=== PATIENT | male | born 1945 | race Caucasian/White ===

== ENCOUNTER 2017-06-04 10:58 | Emergency (ER) | payer BC ==
[2017-06-04] MEDS ORDERED: NS 0.9% 1000 ML* 1,000 ML IV ONE (11:29)
[2017-06-04 11:54] LABS: ABS Basophils 0 10^3/ul (0-0.2); ABS Eosinophils 0 10^3/ul (0-0.6); ABS Lymphocytes 0.7 10^3/ul (1.0-4.8); ABS Monocytes 1.1 10^3/ul (0-0.8); ABS Neutrophils 5.7 10^3/ul (1.5-7.7); ABS Nucleated RBC 0 10^3/ul; Eosinophil % 0.3 % (0-6); Hematocrit 44 % (42-52); Hemoglobin 14.8 g/dl (14.0-18.0); Lymphocyte % 8.7 % (25-47); Mean Corpuscular HGB Conc 34 g/dl (31-36); Mean Corpuscular Hemoglobin 31 pg (27-31); Mean Corpuscular Volume 91 fL (80-94); Mean Platelet Volume 8 um3 (7.4-10.4); Nucleated Red Blood Cells % 0; Platelet Count 210 10^3/ul (150-450); Red Blood Count 4.82 10^6/ul (4.0-5.4); Red Cell Distribution Width 15 % (10.5-15); White Blood Count 7.6 10^3/ul (3.5-10.8)
[2017-06-04 12:12] LABS: EGFR Non-African American 78.4 (>60)
--- NOTE | 2017-06-04 12:34 | RAD ---
HISTORY: Fever, cough COMPARISONS: None VIEWS: 4: Frontal dual-energy and lateral views of the chest. FINDINGS: CARDIOMEDIASTINAL SILHOUETTE: The cardiomediastinal silhouette is normal. MARISSA: The marissa are normal. PLEURA: The costophrenic angles are sharp. No pleural abnormalities are noted. LUNG PARENCHYMA: The lungs are clear. ABDOMEN: The upper abdomen is clear. There is no subphrenic gas. BONES AND SOFT TISSUES: No bone or soft tissue abnormalities are noted. OTHER: None. IMPRESSION: NO ACTIVE CARDIOPULMONARY DISEASE.
[2017-06-04 12:58] LABS: Urine Appearance Clear; Urine Blood Negative (Negative); Urine Color Yellow; Urine Ketones Negative (Negative); Urine Protein Negative (Negative); Urine Specific Gravity 1.016 (1.010-1.030); Urine Urobilinogen Negative (Negative)
[2017-06-04 13:56] VITALS: BP 120/72
--- NOTE | 2017-06-04 18:06 | ED ---
Adilene Lewis Edward, scribed for Kris Martinez MD on 06/04/17 at 1143 . Complex/Multi-Sys Presentation - HPI Summary HPI Summary: 71 y/o male presents to the ED c/o sore throat and cough lasting one week. Pt developed a fever two days ago (101 last night). Last night the pt's cough became worse and bothered him throughout the night. The cough is mildly productive, described as a "rolling cough". Associated sx: nasal congestion. Pt had a kidney transplant in July of 2016 in [place]. pt has had tylenol for his fever. - History Of Current Complaint Chief Complaint: EDGeneral Time Seen by Provider: 06/04/17 11:24 Hx Obtained From: Patient Onset/Duration: Lasting Days, Still Present Timing: Constant Associated Signs And Symptoms: Positive: Cough, Fever, Other - sore throat, rhinorrhea, nasal congestion - Allergies/Home Medications Allergies/Adverse Reactions: Allergies Allergy/AdvReac Type Severity Reaction Status Date / Time No Known Allergies Allergy Verified 06/04/17 11:15 PMH/Surg Hx/FS Hx/Imm Hx Previously Healthy: No Cardiovascular History: Reports: Hx Hypertension History: Reports: Other Problems/Disorders - polycystic kidney disease - Surgical History Surgery Procedure, Year, and Place: Kidney transplant July 2016 [place] Infectious Disease History: No Infectious Disease History: Denies: Traveled Outside the [place] in Last 30 Days - Family History Known Family History: Positive: Unknown - Social History Occupation: Employed Full-time Lives: With Family Review of Systems Positive: Fever Eyes: Negative Positive: Sore Throat, Nasal Discharge - rhinorrhea and congestion Cardiovascular: Negative Positive: Cough Gastrointestinal: Negative Genitourinary: Negative Musculoskeletal: Negative Skin: Negative Neurological: Negative Psychological: Normal All Other Systems Reviewed And Are Negative: Yes Physical Exam - Summary Physical Exam Summary: VITAL SIGNS: Reviewed. GENERAL: Patient is an elderly male who is lying comfortable in the stretcher. Patient is not in any acute respiratory distress. HEAD AND FACE: No signs of trauma. No ecchymosis, hematomas or skull depressions. No sinus tenderness. EYES: PERRLA, EOMI x 2, No injected conjunctiva, no nystagmus. EARS: Hearing grossly intact. Ear canals and tympanic membranes are within normal limits. MOUTH: Oropharynx within normal limits. NECK: Supple, trachea is midline, no adenopathy, no JVD, no carotid bruit, no c- spine tenderness, neck with full ROM. CHEST: Symmetric, no tenderness at palpation LUNGS: Clear to auscultation bilaterally. No wheezing or crackles. CVS: Regular rate and rhythm, S1 and S2 present, no murmurs or gallops appreciated. ABDOMEN: Soft, non-tender. No signs of distention. No rebound no guarding, and no masses palpated. Bowel sounds are normal. EXTREMITIES: FROM in all major joints, no edema, no cyanosis or clubbing. NEURO: Alert and oriented x 3. No acute neurological deficits. Speech is normal and follows commands. SKIN: Dry and warm Triage Information Reviewed: Yes Vital Signs On Initial Exam: Initial Vitals Temp Pulse Resp BP Pulse Ox 98.7 F 104 16 136/84 97 06/04/17 11:13 06/04/17 11:13 06/04/17 11:13 06/04/17 11:13 06/04/17 11:13 Vital Signs Reviewed: Yes Diagnostics - Vital Signs Vital Signs Temp Pulse Resp BP Pulse Ox 06/04/17 11:13 98.7 F 104 16 136/84 97 - Laboratory Lab Results: Lab Results 06/04/17 06/04/17 06/04/17 Range/Units 11:40 11:40 11:40 WBC 7.6 (3.5-10.8) 10^3/ul RBC 4.82 (4.0-5.4) 10^6/ul Hgb 14.8 (14.0-18.0) g/dl Hct 44 (42-52) % MCV 91 (80-94) fL MCH 31 (27-31) pg MCHC 34 (31-36) g/dl RDW 15 (10.5-15) % Plt Count 210 (150-450) 10^3/ul MPV 8 (7.4-10.4) um3 Neut % (Auto) 75.8 (38-83) % Lymph % (Auto) 8.7 L (25-47) % [place] % (Auto) 14.7 H (1-9) % Eos % (Auto) 0.3 (0-6) % Baso % (Auto) 0.5 (0-2) % Absolute Neuts (auto) 5.7 (1.5-7.7) 10^3/ul Absolute Lymphs (auto) 0.7 L (1.0-4.8) 10^3/ul Absolute Monos (auto) 1.1 H (0-0.8) 10^3/ul Absolute Eos (auto) 0 (0-0.6) 10^3/ul Absolute Basos (auto) 0 (0-0.2) 10^3/ul Absolute Nucleated RBC 0 10^3/ul Nucleated RBC % 0 Sodium 133 (133-145) mmol/L Potassium 3.8 (3.5-5.0) mmol/L Chloride 101 (101-111) mmol/L Carbon Dioxide 24 (22-32) mmol/L Anion Gap 8 (2-11) mmol/L BUN 10 (6-24) mg/dL Creatinine 0.95 (0.67-1.17) mg/dL Est GFR ( Amer) 100.8 (>60) Est GFR (Non-Af Amer) 78.4 (>60) BUN/Creatinine Ratio 10.5 (8-20) Glucose 162 H (70-100) mg/dL Lactic Acid (0.5-2.0) mmol/L Calcium 9.0 (8.6-10.3) mg/dL Total Bilirubin 0.80 (0.2-1.0) mg/dL AST 14 (13-39) U/L ALT 10 (7-52) U/L Alkaline Phosphatase 37 (34-104) U/L Total Creatine Kinase 69 (10-223) U/L CK-MB (CK-2) 0.6 (0.6-6.3) ng/mL Troponin I 0.01 (<0.04) ng/mL C-Reactive Protein 77.82 H (< 5.00) mg/L B-Natriuretic Peptide 32 ( - 100) pg/mL Total Protein 6.4 (6.4-8.9) g/dL Albumin 3.7 (3.2-5.2) g/dL Globulin 2.7 (2-4) g/dL Albumin/Globulin Ratio 1.4 (1-3) Urine Color Urine Appearance Urine pH (5-9) Ur Specific [place] (1.010-1.030) Urine Protein (Negative) Urine Ketones (Negative) Urine Blood (Negative) Urine Nitrate (Negative) Urine Bilirubin (Negative) Urine Urobilinogen (Negative) Ur Leukocyte Esterase (Negative) Urine Glucose (Negative) Influenza A (Rapid) (Negative) Influenza B (Rapid) (Negative) 06/04/17 06/04/17 06/04/17 Range/Units 11:40 11:53 12:43 WBC (3.5-10.8) 10^3/ul RBC (4.0-5.4) 10^6/ul Hgb (14.0-18.0) g/dl Hct (42-52) % MCV (80-94) fL MCH (27-31) pg MCHC (31-36) g/dl RDW (10.5-15) % Plt Count (150-450) 10^3/ul MPV (7.4-10.4) um3 Neut % (Auto) (38-83) % Lymph % (Auto) (25-47) % [place] % (Auto) (1-9) % Eos % (Auto) (0-6) % Baso % (Auto) (0-2) % Absolute Neuts (auto) (1.5-7.7) 10^3/ul Absolute Lymphs (auto) (1.0-4.8) 10^3/ul Absolute Monos (auto) (0-0.8) 10^3/ul Absolute Eos (auto) (0-0.6) 10^3/ul Absolute Basos (auto) (0-0.2) 10^3/ul Absolute Nucleated RBC 10^3/ul Nucleated RBC % Sodium (133-145) mmol/L Potassium (3.5-5.0) mmol/L Chloride (101-111) mmol/L Carbon Dioxide (22-32) mmol/L Anion Gap (2-11) mmol/L BUN (6-24) mg/dL Creatinine (0.67-1.17) mg/dL Est GFR ( Amer) (>60) Est GFR (Non-Af Amer) (>60) BUN/Creatinine Ratio (8-20) Glucose (70-100) mg/dL Lactic Acid 1.2 (0.5-2.0) mmol/L Calcium (8.6-10.3) mg/dL Total Bilirubin (0.2-1.0) mg/dL AST (13-39) U/L ALT (7-52) U/L Alkaline Phosphatase (34-104) U/L Total Creatine Kinase (10-223) U/L CK-MB (CK-2) (0.6-6.3) ng/mL Troponin I (<0.04) ng/mL C-Reactive Protein (< 5.00) mg/L B-Natriuretic Peptide ( - 100) pg/mL Total Protein (6.4-8.9) g/dL Albumin (3.2-5.2) g/dL Globulin (2-4) g/dL Albumin/Globulin Ratio (1-3) Urine Color Yellow Urine Appearance Clear Urine pH 6.0 (5-9) Ur Specific [place] 1.016 (1.010-1.030) Urine Protein Negative (Negative) Urine Ketones Negative (Negative) Urine Blood Negative (Negative) Urine Nitrate Negative (Negative) Urine Bilirubin Negative (Negative) Urine Urobilinogen Negative (Negative) Ur Leukocyte Esterase Negative (Negative) Urine Glucose Negative (Negative) Influenza A (Rapid) Negative (Negative) Influenza B (Rapid) Negative (Negative) Result Diagrams: 06/04/17 11:40 06/04/17 11:40 Lab Statement: Any lab studies that have been ordered have been reviewed, and results considered in the medical decision making process. - Radiology CXR Xray Interpretation: No Acute Changes - NO ACTIVE CARDIOPULMONARY DISEASE Radiology Interpretation Completed By: Radiologist - EKG 1 EKG Interpretation: 11:45 - SR @ 89 BPM. RBBB. Some PVCs. Re-Evaluation - Re-Evaluation 1 Re-Evaluation Time: 13:50 Comment: Discuss test results and plan of care Complex Multi-Symp Course/Dx Assessment/Plan: 71 y/o male presents to the ED c/o sore throat and cough lasting one week. Pt developed a fever two days ago (101 last night). Last night the pt's cough became worse and bothered him throughout the night. The cough is mildly productive, described as a "rolling cough". Associated sx: nasal congestion. Pt had a kidney transplant in July of 2016 in [place]. pt has had tylenol for his fever. EKG @ 11:45 - SR @ 89 BPM. RBBB. Some PVCs. CXR SHOWS NO ACTIVE CARDIOPULMONARY DISEASE. Test results are without significant abnormalities except CRP 77.8, glucose 162, UA (-) UTI. Influenza A and B negative. CXR negative for PNA. Pt is hydrated in the ED. I discussed with Dr. Faye who recommends the pt be d/c home with a Rx for Tamiflu even though the pt tested negative for flu. However b/c of the pts immunosuppression, Dr. faye wants to give the Tamiflu prophylaxis. Pt is hemodynamically stable, A& Ox3. - Diagnoses Differential Diagnoses/HQI/PQRI: Other - Flue, Pneumonia, Bronchitis, UTI. Provider Diagnoses: URI (upper respiratory infection), Cough - Physician Notifications Discussed Care Of Patient With: Christi Faye Time Discussed With Above Provider: 13:45 Instructed by Provider To: Other - Tamiflu Discharge - Discharge Plan Condition: Stable Disposition: HOME Prescriptions: Oseltamivir CAP* [Tamiflu CAP*] 75 mg PO BID #10 cap Patient Education Materials: Upper Respiratory Infection (ED) Referrals: Christi Faye MD [Primary Care Provider] - 2 Days (PLEASE F/U ON TUESDAY) The documentation as recorded by the Adilene quiñonez Edward accurately reflects the service I personally performed and the decisions made by , Kris Martinez MD.
--- NOTE | 2017-06-06 10:29 | ED ---
Progress - Progress Note Progress Note: Patient's preliminary sputum culture revealed Streptococcus pneumoniae 3+. It appears he was diagnosed with influenza and treated with Tamiflu at discharge. Vitals were stable at time of discharge. Will await final culture and contact patient to update symptoms at that time. Re-Evaluation - Re-Evaluation 1 Re-Evaluation Time: 13:50 Comment: Discuss test results and plan of care Course/Dx - Diagnoses Provider Diagnoses: URI (upper respiratory infection), Cough - Provider Notifications Time Discussed With Above Provider: 13:45 Instructed by Provider To: Other - Tamiflu
== END 2017-06-04 14:04 | disposition home or self-care (01) ==
LOC: ED 10:58
DX: J06.9 Acute upper respiratory infection, unspecified (principal); R05 Cough; R50.9 Fever, unspecified; J02.9 Acute pharyngitis, unspecified; Z86.79 Personal history of other diseases of the circulatory system
CPT/HCPCS: 36415; 71046; 80053; 81003; 82550; 82553; 83605; 83880; 84484; 85025; 86140; 87040; 87070; 87205; 87502; 93005; 96360; 99283

== ENCOUNTER 2018-10-31 12:29 | Day surgery (SDC) | payer BC ==
[~2018-10-31 12:29] MED LIST: Acetaminophen TAB* 325 MG PO PRN; Buffered Lidocaine 1% SYRIN* 1 ML/SYRINGE INTRADERM ONE
[2018-10-31] MEDS ORDERED: fentaNYL* 50 MCG/ML 2 ML VIAL (100 MCG VIAL) ONE (13:20)
[2018-10-31] MEDS ORDERED: Midazolam* 1 MG/ML 2 ML VIAL (2 MG) ONE (13:20)
[2018-10-31] MEDS ORDERED: Phenylephrine OPHTH SOL 2.5%* 2 ML ONE (14:41)
[2018-10-31] MEDS ORDERED: Lidocaine 1%** 5 ML VIAL ONE (14:41)
[2018-10-31] MEDS ORDERED: Ketorolac 0.5% OPHTH (NF) 0.5 % 5 ML BTL ONE (14:41)
[2018-10-31] MEDS ORDERED: Tetracaine 0.5% OPTH.SOL 4 ML* 1 DROP BTL ONE (14:41)
[2018-10-31] MEDS ORDERED: Neomycin/Polymy/Dex OPHTH.OIN* 3.5 GM ONE (14:41)
[2018-10-31] MEDS ORDERED: Tropicamide 1% OPTH.SOL* BTL ONE (14:41)
[2018-10-31] MEDS ORDERED: Cyclopentolate 1% OPTH.SOL* 2 ML BTL ONE (14:41)
--- NOTE | 2018-10-31 15:07 | OP ---
DATE OF OPERATION: 10/31/18 [facility] DATE OF : 47 SURGEON: Dr. Curt Gamboa. FAMILY LAW SPECIALIST: None. ANESTHESIA: Topical with intravenous sedation. PRE-OP DIAGNOSIS: Cataract, left eye. POST-OP DIAGNOSIS: Cataract, left eye. OPERATIVE PROCEDURE: Phacoemulsification and cataract extraction with posterior chamber intraocular lens implant, left eye. COMPLICATIONS: None. BLOOD LOSS: None. OPERATIVE REPORT: DESCRIPTION OF PROCEDURE: The patient was brought to the operating room and received a small amount of intravenous sedation. A drop of Tetracaine was placed in his left eye. He was prepped and draped in the usual sterile fashion for ophthalmic surgery and attention was directed to the left eye where a speculum was placed. A paracentesis was created at the 5 o'clock position and 0.1 cc of 1 percent preservative-free Lidocaine was injected into the anterior chamber followed by DisCoVisc. The eye was digitally stabilized while a 2.75 mm keratome was used to create a triplanar clear corneal incision at the 3 o' clock position. A continuous curvilinear capsulorrhexis was created with a cystotome and Utrata forceps. BSS on a cannula was used to hydrodissect the lens from the capsule. Phacoemulsification was performed in a divide-and- conquer technique to create four fragments which were removed. Residual cortical material was removed with irrigation and aspiration. DisCoVisc was used to inflate the capsular bag and an AU00T0 16.0 diopter lens was folded and inserted into the capsular bag. DisCoVisc was removed using irrigation and aspiration. BSS on a cannula was used to hydrate the corneal stroma and seal the wound. At the end of the case the pupil was round and the lens was centered. The eye was of normal pressure and the wound was water tight. The speculum was removed and topical Maxitrol ointment was placed on the surface of the eye. The eye was closed, patched and shielded and the patient was sent to the recovery room in stable condition with post operative instructions and followup appointment given. [id number]/CPS #: [id number] ROSALINO
[2018-10-31 15:27] VITALS: BP 111/63
== END 2018-10-31 14:40 | disposition home or self-care (01) ==
LOC: OREAST 12:29
PROVIDERS: ATTEND Ophthalmology
DX: H25.042 Posterior subcapsular polar age-related cataract, left eye (principal); Z85.828 Personal history of other malignant neoplasm of skin; Z94.0 Kidney transplant status; Z87.891 Personal history of nicotine dependence
CPT/HCPCS: A9270-GY; J2250; J3010; V2632

== ENCOUNTER 2018-11-07 11:08 | Day surgery (SDC) | payer BC ==
[2018-11-07] MEDS ORDERED: Midazolam* 1 MG/ML 5 ML VIAL (5 MG) ONE (11:34)
[2018-11-07] MEDS ORDERED: fentaNYL* 50 MCG/ML 2 ML VIAL (100 MCG VIAL) ONE (11:34)
--- NOTE | 2018-11-07 12:54 | OP ---
DATE OF OPERATION: 11/07/18 [facility] DATE OF : 47 SURGEON: Dr. Curt Gamboa. AIR MOVING TECHNICIAN: None. ANESTHESIA: Topical with intravenous sedation. PRE-OP DIAGNOSIS: Cataract, right eye. POST-OP DIAGNOSIS: Cataract, right eye. OPERATIVE PROCEDURE: Phacoemulsification and cataract extraction with posterior chamber intraocular lens implant, right eye. COMPLICATIONS: None. BLOOD LOSS: None. DESCRIPTION OF PROCEDURE: The patient was brought to the operating room and received a small amount of intravenous sedation. A drop of Tetracaine was placed in his right eye. He was prepped and draped in the usual sterile fashion for ophthalmic surgery and attention was directed to the right eye where a speculum was placed. A paracentesis was created at the 11 o'clock position and 0.1 cc of 1 percent preservative-free Lidocaine was injected into the anterior chamber followed by DisCoVisc. The eye was digitally stabilized while a 2.75 mm keratome was used to create a triplanar clear corneal incision at the 9 o'clock position. A continuous curvilinear capsulorrhexis was created with a cystotome and Utrata forceps. BSS on a cannula was used to hydrodissect the lens from the capsule. Phacoemulsification was performed in a divide-and- conquer technique to create four fragments which were removed. Residual cortical material was removed with irrigation and aspiration. DisCoVisc was used to inflate the capsular bag and an AU00T0 16.0 diopter lens was folded and inserted into the capsular bag. DisCoVisc was removed using irrigation and aspiration. BSS on a cannula was used to hydrate the corneal stroma and seal the wound. At the end of the case the pupil was round and the lens was centered. The eye was of normal pressure and the wound was water tight. The speculum was removed and topical Maxitrol ointment was placed on the surface of the eye. The eye was closed, patched and shielded and the patient was sent to the recovery room in stable condition with post operative instructions and follow-up appointment given. [id number]/CPS #: [id number] ROSALINO
[2018-11-07 12:58] VITALS: BP 113/75
[2018-11-07] MEDS ORDERED: Tropicamide 1% OPTH.SOL* BTL ONE (13:12)
[2018-11-07] MEDS ORDERED: Cyclopentolate 1% OPTH.SOL* 2 ML BTL ONE (13:12)
[2018-11-07] MEDS ORDERED: Neomycin/Polymy/Dex OPHTH.OIN* 3.5 GM ONE (13:12)
[2018-11-07] MEDS ORDERED: Lidocaine 1% MPF ** 5 ML VIAL ONE (13:12)
[2018-11-07] MEDS ORDERED: Tetracaine 0.5% OPTH.SOL 4 ML* 1 DROP BTL ONE (13:12)
[2018-11-07] MEDS ORDERED: Ketorolac 0.5% OPHTH (NF) 0.5 % 5 ML BTL ONE (13:12)
[2018-11-07] MEDS ORDERED: Phenylephrine OPHTH SOL 2.5%* 2 ML ONE (13:12)
== END 2018-11-07 12:49 | disposition home or self-care (01) ==
LOC: OREAST 11:08
PROVIDERS: ATTEND Ophthalmology
DX: H25.11 Age-related nuclear cataract, right eye (principal); Z94.0 Kidney transplant status; Z85.828 Personal history of other malignant neoplasm of skin; Z87.891 Personal history of nicotine dependence
CPT/HCPCS: A9270-GY; J2250; J3010; V2632

== ENCOUNTER 2019-04-27 18:14 | Emergency (ER) | payer BC ==
--- NOTE | 2019-04-27 19:13 | ED ---
Abdominal Pain/Male - HPI Summary HPI Summary: 73-year-old male with a significant past medical history of polycystic kidney disease with kidney transplant in 2017 at [facility] in [facility], presents to the emergency department today complaining of abdominal pain. Patient endorses having diffuse lower abdominal pain for the past 2 weeks which is about a 3 out of 10 and last evening experiencing 8 out of 10 left lower quadrant abdominal pain which is made worse with palpation. Patient is taking antirejection medications such as immunosuppressants and prednisone daily. Patient denies blood per rectum, fevers , chills, dark colored stools, changes in bowel habits, changes in medications, shortness breath, chest pain, rash. - History of Current Complaint Chief Complaint: EDAbdPain Stated Complaint: ABD PAIN PER PT Time Seen by Provider: 04/27/19 18:49 Hx Obtained From: Patient Onset/Duration: Sudden Onset, Gradual Onset Timing: Constant, Intermittent Severity Initially: Mild Severity Currently: Severe Pain Intensity: 6 Pain Scale Used: 0-10 Numeric Location: Discrete At: LLQ Radiates: No Character: Sharp Aggravating Factor(s): Movement Alleviating Factor(s): Position Associated Signs And Symptoms: Negative: Fever, Cough, Chest Pain, Dizzy, Back Pain, Blood in Stool, Urinary Symptoms, Decreased Appetite, Nausea, Vomiting, Diarrhea - Allergies/Home Medications Allergies/Adverse Reactions: Allergies Allergy/AdvReac Type Severity Reaction Status Date / Time No Known Allergies Allergy Verified 04/27/19 18:18 Home Medications: Home Medications Aspirin EC TAB* [Ecotrin EC Low Dose 81 MG*] 81 mg PO DAILY 04/27/19 [History Confirmed 04/27/19] Cholecalciferol TAB* [Vitamin D TAB*] 1,000 unit PO DAILY 04/27/19 [History Confirmed 04/27/19] Dutasteride (NF) [Avodart (NF)] 0.5 mg PO QAM 04/27/19 [History Confirmed ] Mycophenolate Mofetil CAP(*) [Cellcept CAP(*)] 1,000 mg PO BID 04/27/19 [ History Confirmed 04/27/19] Tacrolimus CAP(*) [Prograf CAP(*)] 0.5 mg PO QPM 04/27/19 [History Confirmed ] Tacrolimus CAP(*) [Prograf CAP(*)] 1 mg PO QAM 04/27/19 [History Confirmed 04/27] Vitamin B Complex CAP* [B Complex CAP*] 1 cap PO DAILY 04/27/19 [History Confirmed 04/27/19] predniSONE TAB* [Deltasone TAB*] 5 mg PO DAILY 04/27/19 [History Confirmed 04/27] PMH/Surg Hx/FS Hx/Imm Hx Cardiovascular History: Reports: Hx Hypertension Denies: Other Cardiovascular Problems/Disorders History: Reports: Hx Kidney Infection - down to 10 percent prior to transplant, Hx Kidney Stones - hx of, Other Problems/Disorders - polycystic kidney disease Musculoskeletal History: Denies: Hx Osteoporosis Sensory History: Reports: Hx Cataracts - alicia, Hx Contacts or Glasses - glasses Denies: Hx Hearing Aid Opthamlomology History: Reports: Hx Cataracts - alicia, Hx Contacts or Glasses - glasses - Surgical History Surgery Procedure, Year, and Place: kidney transplant 2017 Hx Anesthesia Reactions: No Infectious Disease History: No Infectious Disease History: Denies: Traveled Outside the [place] in Last 30 Days - Family History Known Family History: Positive: Unknown - Social History Alcohol Use: None Alcohol Amount: 1 per day Substance Use Type: Reports: None Smoking Status (MU): Former Smoker Amount Used/How Often: in college for 5 yrs pack a day Review of Systems Constitutional: Negative Eyes: Negative ENT: Negative Cardiovascular: Negative Respiratory: Negative Positive: Abdominal Pain. Negative: Vomiting, Diarrhea, Nausea Genitourinary: Negative Musculoskeletal: Negative Skin: Negative Neurological: Negative Psychological: Normal All Other Systems Reviewed And Are Negative: Yes Physical Exam - Summary Physical Exam Summary: Inspection of the abdomen reveals no ecchymosis or masses. Auscultation reveals normoactive bowel sounds. Palpation reveals tenderness of the left lower quadrant. Negative psoas, Rovsing, obturator, McBurney's, Toussaint's sign. No renal masses appreciated with exam. Triage Information Reviewed: Yes Vital Signs On Initial Exam: Initial Vitals Temp Pulse Resp BP Pulse Ox 98.9 F 89 19 172/97 99 04/27/19 18:15 04/27/19 18:15 04/27/19 18:15 04/27/19 18:15 04/27/19 18:15 Vital Signs Reviewed: Yes Appearance: Positive: Well-Appearing, No Pain Distress, Well-Nourished Skin: Positive: Warm, Skin Color Reflects Adequate Perfusion Eyes: Positive: EOMI, JOSE ENT: Positive: Hearing grossly normal Respiratory/Lung Sounds: Positive: Clear to Auscultation, Breath Sounds Present Cardiovascular: Positive: RRR, S1, S2 Abdomen Description: Positive: No Organomegaly, Soft. Negative: Distended, Guarding, McBurney's Point Tenderness Bowel Sounds: Positive: Present Musculoskeletal: Positive: Strength/ROM Intact Neurological: Positive: Sensory/Motor Intact, Alert, Oriented to Person Place, Time, Normal Gait, Speech Normal Psychiatric: Positive: Normal AVPU Assessment: Alert Procedures - Sedation Patient Received Moderate/Deep Sedation with Procedure: No Diagnostics - Vital Signs Vital Signs Temp Pulse Resp BP Pulse Ox 04/27/19 19:01 91 151/76 98 04/27/19 19:00 85 98 04/27/19 18:15 98.9 F 89 19 172/97 99 - Laboratory Result Diagrams: 04/27/19 19:27 04/27/19 19:27 Lab Statement: Any lab studies that have been ordered have been reviewed, and results considered in the medical decision making process. Abdominal Pain Male Course/Dx - Course Course Of Treatment: Patient was evaluated in the emergency department for abdominal pain. Patient vital signs are noted. He is afebrile. Laboratory studies show mild proptosis with a white blood cell count of 12.1 with a mild left shift. No evidence of urinary tract infection. Laboratory studies returned showing mild leukocytosis of 12.1 with absolutely neutral count at 9.7. No significant electrolyte abnormalities other than hypomagnesemia at 1.5. C reactive protein was elevated at 28.07. CT scan of the abdomen and pelvis was obtained using oral contrast, Due to patient's history IV contrast was held , which showed evidence of acute diverticulitis. Patient was given 1 dose of IV metronidazole and ciprofloxacin in the emergency department and then sent home with a prescription for ciprofloxacin and metronidazole. Patient was given by mouth magnesium for replacement. Patient is to follow-up with his PCP in 5 days. - Diagnoses Differential Diagnosis/HQI/PQRI: Appendicitis, Constipation, Diverticulitis, Renal Colic, Ureteral Stone, Urinary Tract Infection Provider Diagnoses: Diverticulitis Discharge ED - Sign-Out/Discharge Documenting (check all that apply): Patient Departure - Discharge Plan Condition: Stable Disposition: HOME Prescriptions: Ciprofloxacin TAB* [Cipro 500 MG TAB*] 500 mg PO BID #14 tab metroNIDAZOLE * [Flagyl] 500 mg PO Q8H #21 tablet Patient Education Materials: Acute Abdominal Pain (ED), Diverticulitis Diet (ED ) Referrals: Christi Faye MD [Primary Care Provider] - 3 Days Additional Instructions: You were seen in the emergency department today and diagnosed with diverticulitis. I sent a prescription for antibiotics to your pharmacy to be taken for 7 days. Please continue the course of antibiotics even if you begin to feel better. Please have a low fiber diet for approximately 3 weeks or until you follow up with your primary care provider. Please follow-up with your primary care provider in 5 days for further evaluation and management of your symptoms. Please return to the emergency department immediately if you develop any new or worsening symptoms. Please be sure to refrain from alcohol ingestion while on metronidazole. - Billing Disposition and Condition Condition: STABLE Disposition: Home
[2019-04-27 19:31] LABS: Urine Appearance Clear; Urine Bilirubin Negative (Negative); Urine Blood Negative (Negative); Urine Color Straw; Urine Glucose Negative (Negative); Urine Ketones Negative (Negative); Urine Nitrite Negative (Negative); Urine Protein Negative (Negative); Urine Specific Gravity 1.008 (1.010-1.030); Urine Urobilinogen Negative (Negative)
[2019-04-27 19:42] LABS: ABS Lymphocytes 1.1 10^3/ul (1.0-4.8); ABS Monocytes 1.1 10^3/ul (0-0.8); ABS Neutrophils 9.7 10^3/ul (1.5-7.7); Eosinophil % 0.1 %; Hematocrit 43 % (42-52); Hemoglobin 14.7 g/dL (14.0-18.0); Lymphocyte % 9.5 %; Mean Corpuscular HGB Conc 35 g/dL (31-36); Mean Corpuscular Hemoglobin 32 pg (27-31); Mean Corpuscular Volume 93 fL (80-94); Mean Platelet Volume 8.5 fL (7.4-10.4); Platelet Count 206 10^3/uL (150-450); Red Blood Count 4.56 10^6 /uL (4.18-5.48); Red Cell Distribution Width 13 % (10-15); White Blood Count 12.1 10^3/uL (3.5-10.8)
[2019-04-27 20:09] LABS: Albumin 4.2 g/dL (3.2-5.2); Albumin/Globulin Ratio 1.9 (1-3); BUN/Creatinine Ratio 17.9 (8-20); C Reactive Protein 28.07 mg/L (<8.01); Calcium 9.3 mg/dL (8.6-10.3); EGFR African American 94.3 (>60); EGFR Non-African American 77.9 (>60); Globulin 2.2 g/dL (2-4); Magnesium 1.5 mg/dL (1.9-2.7); Potassium 4.2 mmol/L (3.5-5.0); Total Bilirubin 1.1 mg/dL (0.2-1.0); Total Protein 6.4 g/dL (6.4-8.9)
[2019-04-27] MEDS ORDERED: Magnesium Chloride EC TAB* 64 MG PO ONE (20:11)
[2019-04-27 21:12] LABS: Erythrocyte Sed Rate 6 mm/Hr (0-19)
[2019-04-27] MEDS ORDERED: metroNIDAZOLE IV 500 MG/100ML* 500 MG/100 ML BAG IVPB ONE (22:49)
[2019-04-27] MEDS ORDERED: Ciprofloxacin 400MG IVPREMIX(* 400 MG/200 ML BAG IVPB ONE (22:49)
[2019-04-28 00:20] VITALS: BP 0/0
== END 2019-04-28 00:19 | disposition home or self-care (01) ==
LOC: ED 18:14
DX: K57.92 Diverticulitis of intestine, part unspecified, without perforation or abscess without bleeding (principal); I10 Essential (primary) hypertension; R10.9 Unspecified abdominal pain; Z87.891 Personal history of nicotine dependence; Z79.82 Long term (current) use of aspirin; Z79.899 Other long term (current) drug therapy
CPT/HCPCS: 36415; 74176; 80053; 81003; 83605; 83690; 83735; 85025; 85652; 86140; 96365; 96376; 99283; A9270-GY; J0744